=== PATIENT | female | born 1970 | race Caucasian/White ===

== ENCOUNTER 2017-08-08 11:39 | Emergency (ER) | payer BC ==
[~2017-08-08] VITALS: Ht 167.6 cm; Wt 102.3 kg
[2017-08-08 11:44] VITALS: TEMP 98.1
[2017-08-08] MEDS ORDERED: FLEXERIL 1010 MG/TAB PO (13:36)
[2017-08-08] MEDS ORDERED: ZITHROMAX Z PA250 MG PO (13:36)
[2017-08-08 14:00] VITALS: BP 148/109; PULSE 91
== END 2017-08-08 14:01 | disposition home or self-care (01) ==
LOC: COL.ER 11:39
DX: M54.5 Low back pain (principal); J20.9 Acute bronchitis, unspecified; H66.91 Otitis media, unspecified, right ear; I10 Essential (primary) hypertension; F17.210 Nicotine dependence, cigarettes, uncomplicated
CPT/HCPCS: J1885